=== PATIENT | female | born 1955 | race Caucasian/White ===

== ENCOUNTER 2019-09-15 12:49 | Outpatient (CLI) | payer OTHER, MEDICARE ==
--- NOTE | 2019-09-15 14:54 | MRI ---
LEFT SHOULDER MRI WITHOUT IV CONTRAST: 09/15/19 HISTORY: Left shoulder pain following an injury. Multiplanar and multisequence MR examination of the left shoulder is performed. 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 There is some minimal nonspecific subcutaneous fat stranding noted cranially to the lipoma but from it, nonspeci fic, possibly related to some subcutaneous contusion or injury or scarring. Small interosseous cyst n oted involving the lesser tuberosity as well as the posterior greater tuberosity. AC joint arthrosis changes are noted with minimal fluid and fat stranding in the subacromial bursa. Minimal increased si gnal associated with the biceps tendon, evidence for some mild tendinopathy. Evidence for partial thi ckness undersurface minimally delaminating tear of the subscapularis tendon. Supraspinatus and infras pinatus and conjoint tendons appear unremarkable. Rotator cuff muscles appear within normal limits fo r signal and volume. Minimal increased signal associated with the labrum, particularly the superior l abrum, possibly related to some degenerative fraying. IMPRESSION: No evidence for full thickness or retracted rotator cuff tear. Mild biceps tendinopathy and partial t hickness undersurface and minimally delaminating tear of the subscapularis tendon. 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 Some nonspecific subcutaneous fat stranding overlying the more superior deltoid muscle not in associa tion with the fatty mass, nonspecific possibly some scarring or minimal subcutaneous contusion or chandni or injury. Somewhat heterogeneous labrum, probably degenerative. POS: RRE
== END 2019-09-15 12:50 | disposition home or self-care (01) ==
LOC: BICMRI 12:49
PROVIDERS: ATTEND Orthopaedic Surgery
DX: M75.102 Unspecified rotator cuff tear or rupture of left shoulder, not specified as traumatic (principal); D49.2 Neoplasm of unspecified behavior of bone, soft tissue, and skin; M25.812 Other specified joint disorders, left shoulder

== ENCOUNTER 2019-10-24 06:58 | Outpatient (CLI) | payer OTHER, MEDICARE ==
[2019-10-24 12:09] LABS: #Basophils 0.1 thou/uL (0.0-0.2); #Eosinphils 0.2 thou/uL (0.0-0.7); #Monocytes 0.9 thou/uL (0.11-0.59); #Neutrophils 5.5 thou/uL (1.40-6.50); %Basophils 0.8 % (0.0-1.0); %Eosinophils 1.6 % (0.0-10.0); %Lymphocytes 31.5 % (21.0-51.0); %Monocytes 8.8 % (0.0-10.0); %Neutrophils 57.2 % (42.0-75.0); Hemoglobin 15.9 g/dL (12.0-16.0); Mean Corpuscular HGB CONC 33.3 g/dL (32.0-36.0); Mean Corpuscular Hemoglobin 33.6 pg (27.0-31.0); Mean Platelet Volume 7.2 fL (7.4-10.4); Platelet Count 232 thou/uL (130-400); RBC Distribution Width 12.1 % (11.5-14.5); Red Blood Cell (RBC) Count 4.71 mill/uL (4.20-5.40); White Blood Cell (WBC) Count 9.6 thou/uL (4.8-10.8)
[2019-10-24 12:30] LABS: Anion Gap 13 mmol/L (10-20); BUN (Urea Nitrogen) 15 mg/dL (9.8-20.1); Calc. Creatinine Clearance 0 mL/min (70-130); Calcium 9.2 mg/dL (7.8-10.44); Carbon Dioxide 26 mmol/L (23-31); Chloride 105 mmol/L (98-107); Estimated GFR-MDRD 70; Glucose 92 mg/dL (80-115); Potassium 4.2 mmol/L (3.5-5.1); Sodium 140 mmol/L (136-145)
[2019-10-24 18:50] LABS: SARS-CoV-2 MS2 Positive; SARS-CoV-2 N Gene Negative; SARS-CoV-2 S Gene Negative; SARS-CoV-2 orf1ab Negative
== END 2019-10-24 06:59 | disposition home or self-care (01) ==
LOC: LABBT 06:58
PROVIDERS: ATTEND Orthopaedic Surgery
DX: Z01.818 Encounter for other preprocedural examination (principal); Z11.59 Encounter for screening for other viral diseases; M75.112 Incomplete rotator cuff tear or rupture of left shoulder, not specified as traumatic; D17.22 Benign lipomatous neoplasm of skin and subcutaneous tissue of left arm
CPT/HCPCS: 80048; 85025; 87635; 93005; 93010; U0003

== ENCOUNTER 2019-10-27 05:34 | Day surgery (SDC) | payer OTHER, MEDICARE ==
[2019-10-24 10:53] VITALS: BMI 28.7
[2019-10-27] MEDS ORDERED: Lidocaine 2% Jelly 5 ML TUBE ONE (06:29)
[2019-10-27] MEDS ORDERED: Fentanyl 100 MCG/2 ML VIAL ONE (06:29)
[2019-10-27] MEDS ORDERED: Midazolam HCl 2 mg/2 ml Vial ONE (06:41)
[2019-10-27] MEDS ORDERED: Acetaminophen 325 MG TAB PO PRN (07:16)
[2019-10-27] MEDS ORDERED: Ropivacaine 0.2% 550 ML 550 ML NERVE BLCK SCH (07:16)
[2019-10-27] MEDS ORDERED: Ondansetron PF 4 MG/2 ML Vial IVP PRN (07:16)
[2019-10-27] MEDS ORDERED: Promethazine HCl 25 MG/ML VIAL IM PRN (07:16)
[2019-10-27] MEDS ORDERED: Fentanyl 100 MCG/2 ML VIAL IV PRN (07:16)
[2019-10-27] MEDS ORDERED: Zolpidem Tartrate 5 MG TAB PO PRN (07:16)
[2019-10-27] MEDS ORDERED: Albuterol Sulfate HFA (OR ONLY) ONE (07:48)
[2019-10-27] MEDS ORDERED: Phenylephrine 10 MG/ML VIAL ONE (07:59)
[2019-10-27] MEDS ORDERED: PHENYLEPHRINE-NS 100 MCG/ML 10 ML SYRINGE ONE ×2 (08:21→10:23)
[2019-10-27] MEDS ORDERED: SUGAMMADEX SODIUM 200 MG/2 ML VIAL ONE (08:26)
[2019-10-27] MEDS ORDERED: Glycopyrrolate 0.2 MG/ML 5 ML SYRINGE ONE (10:23)
[2019-10-27] MEDS ORDERED: Rocuronium Bromide 10 MG/ML (10ML VIAL) ONE (10:23)
[2019-10-27] MEDS ORDERED: EPHEDRINE 25 MG/5 ML SYRINGE ONE (10:23)
[2019-10-27] MEDS ORDERED: Succinylcholine Chloride 20 MG/ML 10 ml SYRINGE FS ONE (10:23)
[2019-10-27] MEDS ORDERED: Lidocaine 1% PF 5 ML VIAL ONE (10:23)
[2019-10-27] MEDS ORDERED: Ondansetron PF 4 MG/2 ML Vial ONE (10:23)
[2019-10-27] MEDS ORDERED: PROPOFOL 200 MG/20 ML VIAL ONE (10:23)
[2019-10-27] MEDS ORDERED: Ropivacaine 0.5% HCl/PF (150 MG/30 ML VIAL) ONE (10:23)
--- NOTE | 2019-10-27 16:46 | OP ---
DATE OF PROCEDURE: 10/27/2019 PREOPERATIVE DIAGNOSES: Subscapularis tear, biceps. Partial tear, left shoulder with lipoma, left shoulder. PROCEDURE PERFORMED: Open subscapularis repair with biceps tenodesis and through a separate incision open removal of 9 cm lipoma. SURGEON: Jorge Muñoz MD EXPERIMENTAL PSYCHOLOGIST: Vince. BLOOD LOSS: Minimal. SPECIMEN: None. DRAINS: None. COMPLICATION: None. DESCRIPTION OF PROCEDURE: The patient was taken to the operating room, where general anesthesia induced. Left arm was prepped and draped in usual sterile fashion after the patient was placed in a beach chair position. I made a deltopectoral approach. This was carried down to the subscapularis and the biceps tendon. The biceps tendon was exposed intact. The subscapularis was still intact inferiorly. This was peeled off and I was able to identify the superior aspect of subscapularis which remained. I placed #5 Ethibond sutures and a Abimael-Cameron type stitch. I measured the tendon which was smaller than 7 mm, drilled a 7 mm hole and used an 8 mm screw because of osteoporosis. I tied the sutures over the screw for a very secure biceps tenodesis. I repaired the subscapularis with transosseous sutures. Irrigation was performed. Subcutaneous tissue was closed with 2-0 Vicryl. The skin was closed with daryl. Attention was turned to the lateral aspect of the arm. A longitudinal incision was made. Dissection was carried down through skin to the muscle, this was an intramuscular lipoma which was shelled out with good margins. Irrigation was performed. Hemostasis was obtained. Subcutaneous tissue was closed with 2-0 Vicryl. Skin was closed with daryl. Sterile dressings were applied. Job ID: [id number]
== END 2019-10-27 11:15 | disposition home or self-care (01) ==
LOC: SDC 05:34
PROVIDERS: ATTEND Orthopaedic Surgery
PROC: 0KB60ZZ Excision of Left Shoulder Muscle, Open Approach (ICD-10-PCS; principal; 2019-10-27)
PROC: 0LQ20ZZ Repair Left Shoulder Tendon, Open Approach (ICD-10-PCS; principal; 2019-10-27)
PROC: 3E0T3BZ Introduction of Anesthetic Agent into Peripheral Nerves and Plexi, Percutaneous Approach (ICD-10-PCS; principal; 2019-10-27)
PROC: 0RHK04Z Insertion of Internal Fixation Device into Left Shoulder Joint, Open Approach (ICD-10-PCS; principal; 2019-10-27)
PROC: 0LS40ZZ Reposition Left Upper Arm Tendon, Open Approach (ICD-10-PCS; principal; 2019-10-27)
DX: M75.112 Incomplete rotator cuff tear or rupture of left shoulder, not specified as traumatic (principal); D17.22 Benign lipomatous neoplasm of skin and subcutaneous tissue of left arm; G89.18 Other acute postprocedural pain; M81.0 Age-related osteoporosis without current pathological fracture; J44.9 Chronic obstructive pulmonary disease, unspecified; G20 Parkinson's disease; F17.200 Nicotine dependence, unspecified, uncomplicated; F32.9 Major depressive disorder, single episode, unspecified; G25.81 Restless legs syndrome; K21.9 Gastro-esophageal reflux disease without esophagitis; G47.00 Insomnia, unspecified; Z79.1 Long term (current) use of non-steroidal anti-inflammatories (NSAID); Z79.899 Other long term (current) drug therapy; Z88.5 Allergy status to narcotic agent; Z91.030 Bee allergy status
CPT/HCPCS: A4306; C1713; J0690; J2001; J2250; J2370; J2405; J2704; J2795; J3010

== ENCOUNTER 2020-06-13 08:50 | Outpatient (CLI) | payer OTHER, MEDICARE ==
--- NOTE | 2020-06-13 10:13 | BD ---
EXAM: DEXA bone density examination HISTORY: Osteoporosis screening COMPARISON: None FINDINGS: L1--bone mineral density 0.650 g/sq cm; T score -3.1. Z score -1.4 L2--bone mineral density 0.715 g/sq cm; T score -2.8; Z score -1.0 L3--bone mineral density 0.696 g/sq cm; T score -3.5; Z score -1.6 L4--bone mineral density 0.744 g/sq cm; T score -2.9, Z score -0.9 Total L1-L4--bone mineral density 0.706 g/sq cm; T score -3.1, Z score -1.2 Left femoral neck--bone mineral density0.569; T score -2.5, Z score -0.9 Total proximal left femur--bone mineral density 0.804; T score -1.1, Z score 0.2 Fax not reported for a T score less than -2.5 IMPRESSION: Based on the WHO criteria, the patient's bone mineral density is consideredOsteoporotic. The patient is at high risk for fracture.
--- NOTE | 2020-06-13 11:19 | MMO ---
Bilateral MAMMO Bilat Screen [facility]. CLINICAL HISTORY: Patient is 64 years old and is seen for screening. The patient has no family history of breast cancer. The patient has no personal history of cancer. The patient has a history of bilateral Implants more than 10 years ago - benign. VIEWS: The views performed were: bilateral craniocaudal; bilateral craniocaudal with tomosynthesis; bilateral mediolateral oblique; and bilateral mediolateral oblique with tomosynthesis. FILMS COMPARED: The present examination has been compared to prior imaging studies performed at [facility] on 03/31/2008, 10/23/2009 and 08/10/2014. This study has been interpreted with the assistance of computer-aided detection. MAMMOGRAM FINDINGS: There are scattered fibroglandular densities. There are stable calcified, distorted implants seen in both breasts. There are no suspicious masses, suspicious calcifications, or new areas of architectural distortion. IMPRESSION: THERE IS NO MAMMOGRAPHIC EVIDENCE OF MALIGNANCY. A ROUTINE FOLLOW-UP MAMMOGRAM IN 1 YEAR IS RECOMMENDED. THE RESULTS OF THIS EXAM WERE SENT TO THE PATIENT. ACR BI-RADS Category 2 - Benign finding MAMMOGRAPHY NOTE: 1. A negative mammogram report should not delay a biopsy if a dominant of clinically suspicious mass is present. 2. Approximately 10% to 15% of breast cancers are not detected by mammography. 3. Adenosis and dense breasts may obscure an underlying neoplasm. Reported by: OYKASTA KING MD Electonically Signed: [id number]
== END 2020-06-13 08:51 | disposition home or self-care (01) ==
LOC: BICMAMMO 08:50
PROVIDERS: ATTEND Internal Medicine
DX: Z12.31 Encounter for screening mammogram for malignant neoplasm of breast (principal); Z13.820 Encounter for screening for osteoporosis; M81.0 Age-related osteoporosis without current pathological fracture; Z78.0 Asymptomatic menopausal state; Z98.82 Breast implant status
CPT/HCPCS: 77063; 77067; 77080

== ENCOUNTER 2020-07-03 10:54 | Outpatient (CLI) | payer OTHER, MEDICARE ==
--- NOTE | 2020-07-03 11:21 | CT ---
EXAM: CT chest without contrast per low-dose cancer screening protocol HISTORY: History of smoking and nicotine dependence COMPARISON: 08/16/2004 TECHNIQUE: Multiple contiguous axial images were obtained in a CT of the chest without contrast per l ow-dose cancer screening protocol. Sagittal and coronal reformats were performed. FINDINGS: Pulmonary nodules: No suspicious pulmonary nodules are seen. No focal infiltrates are seen. Pleural space: No pneumothorax or pleural effusion are seen. Heart: The heart is normal in size. Mediastinum: There is a nonspecific 1.6 cm paraesophageal lymph node near the gastroesophageal juncti on. No other hilar or mediastinal lymphadenopathy appreciated on this limited noncontrast examination. Bones: Degenerative changes in the spine. CHEST WALL: Bilateral calcified breast implants Visualized subdiaphragmatic structures: Unremarkable. IMPRESSION: 1. Lung RADS category 1-negative. 2. Lung RADS category S - nonspecific lymph node adjacent to the distal esophagus.
== END 2020-07-03 10:55 | disposition home or self-care (01) ==
LOC: BICCT 10:54
PROVIDERS: ATTEND Nurse Practitioner Adult Health
DX: Z12.2 Encounter for screening for malignant neoplasm of respiratory organs (principal); F17.210 Nicotine dependence, cigarettes, uncomplicated
CPT/HCPCS: G0297

== ENCOUNTER 2021-02-22 09:58 | Day surgery (SDC) | payer OTHER ==
[2021-02-20 14:35] VITALS: BMI 28.3
[2021-02-22] MEDS ORDERED: Albuterol Sulfate 2.5 mg/3 ml Neb NEB SCH (12:45)
[2021-02-22] MEDS ORDERED: Albuterol Sulfate 1.25 MG/3 ML NEB ONE (12:56)
[2021-02-22] MEDS ORDERED: Lidocaine 2% Jelly 5 ML TUBE ONE (13:39)
[2021-02-22] MEDS ORDERED: Bupivacaine 0.25% HCL 30 ML VIAL ONE ×2 (13:39→13:58)
[2021-02-22] MEDS ORDERED: EPINEPHrine 1 MG/ML AMP ONE ×2 (13:39→13:59)
[2021-02-22] MEDS ORDERED: ePHEDrine 50 MG/ML VIAL ONE (13:50)
[2021-02-22] MEDS ORDERED: Dexamethasone 20 MG/5 ML VIAL ONE (13:50)
[2021-02-22] MEDS ORDERED: PROPOFOL 200 MG/20 ML VIAL ONE (13:50)
[2021-02-22] MEDS ORDERED: Ondansetron PF 4 MG/2 ML Vial ONE (13:50)
[2021-02-22] MEDS ORDERED: Lidocaine 1% PF 5 ML VIAL ONE (13:50)
== END 2021-02-22 15:50 | disposition home or self-care (01) ==
LOC: SDC 09:58
PROVIDERS: ATTEND Surgery
PROC: 0DBQXZX Excision of Anus, External Approach, Diagnostic (ICD-10-PCS; principal; 2021-02-22)
DX: C44.520 Squamous cell carcinoma of anal skin (principal); K64.9 Unspecified hemorrhoids; J44.9 Chronic obstructive pulmonary disease, unspecified; G25.81 Restless legs syndrome; K21.9 Gastro-esophageal reflux disease without esophagitis; F17.200 Nicotine dependence, unspecified, uncomplicated; Z79.1 Long term (current) use of non-steroidal anti-inflammatories (NSAID); Z79.899 Other long term (current) drug therapy; Z88.5 Allergy status to narcotic agent; Z91.030 Bee allergy status; Z01.818 Encounter for other preprocedural examination; K62.89 Other specified diseases of anus and rectum; Z20.822 Contact with and (suspected) exposure to COVID-19
CPT/HCPCS: 71046; 80048; 85025; 88305; J0171; J0690; J1100; J2405; J2704; J3490; S0020; U0003; U0005